=== PATIENT | male | born 1955 | race Caucasian/White ===

== ENCOUNTER → 2024-04-10 | Outpatient (REF) | payer MEDICARE ==
[2024-04-10 15:25] LABS: BASO # 0.1 10^3/uL (0.0-0.2); BASO % 0.8 % (0.0-1.0); EOS # 0.3 10^3/uL (0.0-0.5); EOS % 3.5 % (0.0-3.0); HEMATOCRIT 49.1 % (42.0-52.0); HEMOGLOBIN 14.7 g/dl (13.5-17.5); LYMPH # 2.8 10^3/uL (1.5-5.0); LYMPH % 31.6 % (24.0-44.0); MEAN CORPUSCULAR HEMOGLOBIN 25.9 pg (27.0-33.0); MEAN CORPUSCULAR HGB CONC 29.9 g/dl (32.0-36.5); MEAN CORPUSCULAR VOLUME 86.6 fl (80.0-96.0); MONO # 0.6 10^3/uL (0.0-0.8); MONO % 6.9 % (2.0-8.0); NEUTROPHILS # 5.1 10^3/uL (1.5-8.5); PLATELET COUNT, AUTOMATED 236 10^3/uL (150-450); RED BLOOD COUNT 5.67 10^6/uL (4.30-6.10); WHITE BLOOD COUNT 8.9 10^3/uL (4.0-10.0)
[2024-04-10 15:53] LABS: URIC ACID 6.3 MG/DL (3.7-9.2)
[2024-04-10 15:57] LABS: ALBUMIN 3.9 G/DL (3.2-5.2); BILIRUBIN,TOTAL 0.4 MG/DL (0.3-1.2); CALCIUM LEVEL 9.9 MG/DL (8.3-10.6); CREATININE FOR GFR 1.39 MG/DL (0.70-1.30); FOLATE 17.34 NG/ML (>5.4); GLOMERULAR FILTRATION RATE 54.3 (>49); PERCENT SATURATION 14.2 % (19.7-50.0); POTASSIUM SERUM 5.1 MMOL/L (3.5-5.1); TOTAL PROTEIN 7.3 G/DL (5.7-8.2)
[2024-04-10 15:58] LABS: FERRITIN 10.9 NG/ML (10.5-307.3); FREE T3 3.2 PG/ML (2.3-4.2); TOTAL 25(OH) VITAMIN D 57.7 NG/ML (20.0-100.0)
[2024-04-10 15:59] LABS: FREE T4 1.39 NG/DL (0.89-1.76); THYROID STIMULATING HORMONE 2.947 uIU/ML (0.55-4.78)
[2024-04-12 09:32] LABS: TRANSFERRIN 335 mg/dL (188-341)
[2024-04-15 17:12] LABS: NT PRO BNP SO 491 pg/mL (<125)
== END ==
LOC: M LAB REF 14:44
PROVIDERS: ATTEND Registered Nurse
DX: R53.83 Other fatigue (principal); M10.9 Gout, unspecified; I50.9 Heart failure, unspecified